=== PATIENT | female | born 1980 | race African-American/Black ===

== ENCOUNTER 2018-10-03 14:12 | Emergency (ER) | payer OTHER ==
[~2018-10-03] VITALS: Ht 154.9 cm; Wt 102.1 kg
--- NOTE | 2018-10-03 15:11 | PHYS DOC ---
Past Medical History Past Medical History: No Pertinent History Past Surgical History: , Tubal ligation Alcohol Use: Occasionally Drug Use: None Adult General Chief Complaint Chief Complaint: CHEST PAIN HPI HPI Patient is a 38 year old female presented ER today for evaluation of chest pain off and on for 2 weeks, trouble breathing for about 5 days. Patient denies any history of blood clot disorder, no history of coronary artery disease, no history hypertension. Patient had no history of diabetic. She is not a smoker, denies taking any control medication. Patient did travel to [place] about 3 weeks ago to attend her dad . She HAS no history of asthma. She says she had been under a lot of stress lately. Review of Systems Review of Systems Constitutional: Denies fever or chills [] Eyes: Denies change in visual acuity, redness, or eye pain [] HENT: Denies nasal congestion or sore throat [] Respiratory: Denies cough, POSITIVE FOR shortness of breath [] Cardiovascular: No additional information not addressed in HPI [] GI: Denies abdominal pain, nausea, vomiting, bloody stools or diarrhea [] : Denies dysuria or hematuria [] Musculoskeletal: Denies back pain or joint pain [] Integument: Denies rash or skin lesions [] Neurologic: Denies headache, focal weakness or sensory changes [] Endocrine: Denies polyuria or polydipsia [] All other systems were reviewed and found to be within normal limits, except as documented in this note. Current Medications Current Medications Current Medications Medications (Trade) Dose Ordered Sig/Neema Start Time Stop Time Status Last Admin Dose Admin Azithromycin (Zithromax) 500 mg 1X ONCE 10/03/18 17:15 10/03/18 17:16 DC 10/03/18 17:21 500 MG Ceftriaxone Sodium (Rocephin) 1 gm 1X ONCE 10/03/18 17:15 10/03/18 17:16 DC 10/03/18 17:21 1 GM Info (CONTRAST GIVEN -- Rx MONITORING) 1 each PRN DAILY PRN 10/03/18 16:15 10/05/18 16:14 Iohexol (Omnipaque 350 Mg/ml) 100 ml 1X ONCE 10/03/18 16:00 10/03/18 16:01 DC 10/03/18 16:20 100 ML Allergies Allergies Allergies Coded Allergies Type Severity Reaction Last Updated Verified No Known Drug Allergies 10/03/18 No Physical Exam Physical Exam Constitutional: Well developed, well nourished, no acute distress, non-toxic appearance. [] HENT: Normocephalic, atraumatic, bilateral external ears normal, oropharynx moist, no oral exudates, nose normal. [] Eyes: PERRLA, EOMI, conjunctiva normal, no discharge. [] Neck: Normal range of motion, no tenderness, supple, no stridor. [] Cardiovascular:Heart rate regular rhythm, no murmur [] Lungs & Thorax: Bilateral breath sounds clear to auscultation [] Abdomen: Bowel sounds normal, soft, no tenderness, no masses, no pulsatile masses. [] Skin: Warm, dry, no erythema, no rash. [] Back: No tenderness, no CVA tenderness. [] Extremities: No tenderness, no cyanosis, no clubbing, ROM intact, no edema. [] Neurologic: Alert and oriented X 3, normal motor function, normal sensory function, no focal deficits noted. [] Psychologic: Affect normal, judgement normal, mood normal. [] Current Patient Data Vital Signs Vital Signs Date Time Temp Pulse Resp B/P (MAP) Pulse Ox O2 Delivery O2 Flow Rate FiO2 10/03/18 15:00 78 18 147/86 (106) 98 Room Air 10/03/18 14:15 98.0 98.0 Lab Values Laboratory Tests Test 10/03/18 14:25 10/03/18 16:50 10/03/18 16:53 White Blood Count 6.8 x10^3/uL (4.0-11.0) Red Blood Count 4.26 x10^6/uL (3.50-5.40) Hemoglobin 13.6 g/dL (12.0-15.5) Hematocrit 40.7 % (36.0-47.0) Mean Corpuscular Volume 96 fL (79-100) Mean Corpuscular Hemoglobin 32 pg (25-35) Mean Corpuscular Hemoglobin Concent 33 g/dL (31-37) Red Cell Distribution Width 13.5 % (11.5-14.5) Platelet Count 261 x10^3/uL (140-400) Neutrophils (%) (Auto) 59 % (31-73) Lymphocytes (%) (Auto) 30 % (24-48) Monocytes (%) (Auto) 10 % (0-9) H Eosinophils (%) (Auto) 1 % (0-3) Basophils (%) (Auto) 0 % (0-3) Neutrophils # (Auto) 4.0 x10^3uL (1.8-7.7) Lymphocytes # (Auto) 2.0 x10^3/uL (1.0-4.8) Monocytes # (Auto) 0.7 x10^3/uL (0.0-1.1) Eosinophils # (Auto) 0.1 x10^3/uL (0.0-0.7) Basophils # (Auto) 0.0 x10^3/uL (0.0-0.2) Prothrombin Time 14.2 SEC (11.7-14.0) H Prothrombin Time INR 1.1 (0.8-1.1) D-Dimer (Aileen) < 0.27 ug/mlFEU Sodium Level 140 mmol/L (136-145) Potassium Level 3.7 mmol/L (3.5-5.1) Chloride Level 103 mmol/L (98-107) Carbon Dioxide Level 24 mmol/L (21-32) Anion Gap 13 (6-14) Blood Urea Nitrogen 11 mg/dL (7-20) Creatinine 0.9 mg/dL (0.6-1.0) Estimated GFR (Cockcroft-Gault) 70.8 BUN/Creatinine Ratio 12 (6-20) Glucose Level 94 mg/dL (70-99) Calcium Level 8.7 mg/dL (8.5-10.1) Magnesium Level 2.0 mg/dL (1.8-2.4) Total Bilirubin 0.3 mg/dL (0.2-1.0) Aspartate Amino Transferase (AST) 17 U/L (15-37) Alanine Aminotransferase (ALT) 22 U/L (14-59) Alkaline Phosphatase 73 U/L (46-116) Creatine Kinase 119 U/L (26-192) Creatine Kinase MB (Mass) 1.3 ng/mL (0.0-3.6) Creatine Kinase MB Relative Index 1.1 % (0-4) Troponin I Quantitative < 0.017 ng/mL (0.000-0.055) NF-[id number]-Type Natriuretic Peptide 9 pg/mL (0-124) Total Protein 7.4 g/dL (6.4-8.2) Albumin 3.4 g/dL (3.4-5.0) Albumin/Globulin Ratio 0.9 (1.0-1.7) L Lipase 94 U/L (73-393) Urine Collection Type Unknown Urine Color Yellow Urine Clarity Clear Urine pH 6.5 Urine Specific [place] >=1.030 Urine Protein Negative mg/dL (NEG-TRACE) Urine Glucose (UA) Negative mg/dL (NEG) Urine Ketones (Stick) Negative mg/dL (NEG) Urine Blood Negative (NEG) Urine Nitrite Negative (NEG) Urine Bilirubin Negative (NEG) Urine Urobilinogen Dipstick 1.0 mg/dL (0.2 mg/dL) Urine Leukocyte Esterase Trace (NEG) Urine RBC 6-10 /HPF (0-2) Urine WBC 5-10 /HPF (0-4) Urine Squamous Epithelial Cells Mod /LPF Urine Bacteria 0 /HPF (0-FEW) Urine Trichomonas Present POC Urine HCG, Qualitative Hcg negative (Negative) Laboratory Tests 10/03/18 14:25 Laboratory Tests 10/03/18 14:25 EKG EKG EKG WAS READ BY THIS PHYSICIAN, HEART RATE OF 91 BPM, SINUS RHYTHM, NO STEMI. Radiology/Procedures Radiology/Procedures [][facility] [address] [place] [address] IMAGING REPORT Signed PATIENT: CHRISTIAN BECK ACCOUNT: [id number] : 1980 LOCATION: ER AGE: 38 SEX: F EXAM STATUS: PRE ER ORD. PHYSICIAN: VIDAL BOTELLO DO REASON: CHEST PAIN PROCEDURE: CHEST AP ONLY Single view of the chest. 10/03/2018 2:50 PM Indication: MID STERNAL CHEST PAIN X 2 WEEKS, SOA X 2 DAYS Comparison: None Findings: There is no focal consolidation. There is no pleural effusion or pneumothorax. The cardiomediastinal silhouette and pulmonary vasculature are within normal limits. No acute osseous abnormalities are seen. Impression: No evidence of acute cardiopulmonary process. Electronically signed by: Claude Irizarry MD (10/03/2018 3:07 PM) [facility] DICTATED and SIGNED BY: CLAUDE IRIZARRY MD DATE: 10/03/18 1507 [facility] [address] [place] [address] IMAGING REPORT Signed PATIENT: CHRISTIAN BECK ACCOUNT: [id number] : 1980 LOCATION: ER AGE: 38 SEX: F EXAM STATUS: REG ER ORD. PHYSICIAN: VIDAL BOTELLO DO REASON: CHEST PAIN, SOA, RECENT LONG DISTANCE TRAVEL PROCEDURE: CT ANGIOGRAPHY CHEST PQRS Compliance statement: One or more of the following individualized dose reduction techniques were utilized for this examination: 1. Automated exposure control. 2. Adjustment of the mA and/or kV according to patient size. 3. Use of iterative reconstruction technique. Indication:CP SOA RECENT TRAVEL INJ 75ML OMNI 350 NO PREV TECHNIQUE: CT angiogram of the chest with IV contrast with multiplanar MIP reformats. COMPARISON:None FINDINGS: Suboptimal PE study due to contrast bolus timing. There are no central or proximal segmental filling defects in the pulmonary arteries. Evaluation of distal segmental and subsegmental pulmonary arteries is limited. Heart is normal in size. No pericardial or pleural effusion. No enlarged axillary, mediastinal or hilar adenopathy. Visualized sections through the liver, spleen, pancreas, adrenals and kidneys are normal limits. Central airways are patent. Multifocal patchy ground glass opacities are seen in the left upper lobe. No suspicious bony lesion. IMPRESSION: 1. Suboptimal PE study due to contrast bolus timing. No central or proximal segmental PE. Evaluation of distal segmental and subsegmental pulmonary arteries is limited. 2. No pneumonia or imaging evidence of acute pulmonary infarct. 3. Multifocal patchy groundglass opacities in the left upper lobe likely infectious in nature. Electronically signed by: Gurvinder Bear DO (10/03/2018 4:40 PM) [facility] DICTATED and SIGNED BY: GURVINDER BEAR DO DATE: 10/03/18 1640 Course & Med Decision Making Course & Med Decision Making Pertinent Labs and Imaging studies reviewed. (See chart for details) [] Dragon Disclaimer Dragon Disclaimer This electronic medical record was generated, in whole or in part, using a voice recognition dictation system. Departure Departure Impression: Primary Impression: Chest pain Additional Impression: CAP (community acquired pneumonia) Disposition: HOME, SELF-CARE Condition: STABLE Referrals: NON,STAFF (PCP) FOLLOW UP WITH YOUR DOCTOR ON MONDAY FOR REEVALUATION Patient Instructions: Chest Pain (Nonspecific), Pneumonia, Adult Scripts Azithromycin (ZITHROMAX) 250 Mg Tablet 1 PKG PO UD, #6 TAB Prov: VIDAL BOTELLO DO 10/03/18 Problem Qualifiers VIDAL BOTELLO DO Oct 03, 2018 15:11
[2018-10-03 15:16] LABS: BASO % 0 % (0-3); EOS # 0.1 x10^3/uL (0.0-0.7); EOS % 1 % (0-3); HEMATOCRIT 40.7 % (36.0-47.0); HEMOGLOBIN 13.6 g/dL (12.0-15.5); LYMPH % 30 % (24-48); MEAN CORPUSCULAR HEMOGLOBIN 32 pg (25-35); MEAN CORPUSCULAR HGB CONC 33 g/dL (31-37); MEAN CORPUSCULAR VOLUME 96 fL (79-100); MONO # 0.7 x10^3/uL (0.0-1.1); MONO % 10 % (0-9); NEUT % 59 % (31-73); PLATELET COUNT 261 x10^3/uL (140-400); RED BLOOD COUNT 4.26 x10^6/uL (3.50-5.40); RED CELL DISTRIBUTION WIDTH 13.5 % (11.5-14.5); WHITE BLOOD COUNT 6.8 x10^3/uL (4.0-11.0)
[2018-10-03 15:28] LABS: CALCIUM 8.7 mg/dL (8.5-10.1); CREATININE 0.9 mg/dL (0.6-1.0); GFR 70.8; POTASSIUM 3.7 mmol/L (3.5-5.1)
[2018-10-03 15:34] LABS: ALBUMIN 3.4 g/dL (3.4-5.0); ALBUMIN/GLOBULIN RATIO 0.9 (1.0-1.7); TOTAL BILIRUBIN 0.3 mg/dL (0.2-1.0); TOTAL PROTEIN 7.4 g/dL (6.4-8.2)
[2018-10-03 15:59] LABS: PROTHROMBIN TIME PATIENT 14.2 SEC (11.7-14.0)
[2018-10-03] MEDS ORDERED: IOHEXOL 350 MG/ML 100 ML VIAL. IV ONE (16:00)
[2018-10-03 16:07] LABS: D-DIMER < 0.27 ug/mlFEU (0.00-0.50)
[2018-10-03] MEDS ORDERED: CONTRAST GIVEN. MC PRN (16:15)
--- NOTE | 2018-10-03 16:43 | RAD ---
PQRS Compliance statement: One or more of the following individualized dose reduction techniques were utilized for this examination: 1. Automated exposure control. 2. Adjustment of the mA and/or kV according to patient size. 3. Use of iterative reconstruction technique. Indication:CP SOA RECENT TRAVEL INJ 75ML OMNI 350 NO PREV TECHNIQUE: CT angiogram of the chest with IV contrast with multiplanar MIP reformats. COMPARISON:None FINDINGS: Suboptimal PE study due to contrast bolus timing. There are no central or proximal segmental filling defects in the pulmonary arteries. Evaluation of distal segmental and subsegmental pulmonary arteries is limited. Heart is normal in size. No pericardial or pleural effusion. No enlarged axillary, mediastinal or hilar adenopathy. Visualized sections through the liver, spleen, pancreas, adrenals and kidneys are normal limits. Central airways are patent. Multifocal patchy ground glass opacities are seen in the left upper lobe. No suspicious bony lesion. IMPRESSION: 1. Suboptimal PE study due to contrast bolus timing. No central or proximal segmental PE. Evaluation of distal segmental and subsegmental pulmonary arteries is limited. 2. No pneumonia or imaging evidence of acute pulmonary infarct. 3. Multifocal patchy groundglass opacities in the left upper lobe likely infectious in nature. Electronically signed by: Gurvinder Bear DO (10/03/2018 4:40 PM) [facility]
[2018-10-03 16:58] LABS: BILIRUBIN,URINE NEGATIVE (NEG); CLARITY,URINE CLEAR; COLOR,URINE YELLOW; NITRITE,URINE NEGATIVE (NEG); PH,URINE 6.5; PROTEIN,URINE NEGATIVE (NEG-TRACE)
[2018-10-03 17:00] VITALS: BP 141/84
[2018-10-03 17:12] LABS: SQUAMOUS EPITHELIAL CELL,UR MOD /LPF
[2018-10-03 17:13] LABS: BACTERIA,URINE 0 /HPF (0-FEW); TRICHOMONAS,URINE PRESENT
[2018-10-03] MEDS ORDERED: AZITHROMYCIN 250 MG TABLET. PO ONE (17:15)
[2018-10-03] MEDS ORDERED: cefTRIAXone IV Push 1 GM VIAL. IVP ONE (17:15)
[2018-10-03] MEDS ORDERED: AZIT250T PO (17:28)
--- NOTE | 2018-10-04 08:33 | EKG ---
[facility] [address] [place] [address] Test Date: 2018-10-03 Test Time: 14:22:36 Pat Name: CHRISTIAN BECK Department: Room: Gender: F Human Resource Officer: : 1980 Requested By: VIDAL BOTELLO Order Number: [id number] Reading MD: Samuel Richey MD Measurements Intervals [place] Rate: 91 P: 50 NV: 144 QRS: 18 QRSD: 84 T: 21 QT: 362 QTc: 447 Interpretive Statements SINUS RHYTHM Electronically Signed On 10-05-2018 16:32:40 CDT by Samuel Richey MD
== END 2018-10-03 17:40 | disposition home or self-care (01) ==
LOC: ER 14:12
DX: J18.9 Pneumonia, unspecified organism (principal); R07.89 Other chest pain; Z98.51 Tubal ligation status; Z98.890 Other specified postprocedural states
CPT/HCPCS: 36415; 71045; 71275; 80053; 81001; 81025; 82553; 83690; 83735; 83880; 84484; 85025; 85379; 85610; 87086; 93005; 96374; 99284; J0696; Q0144; Q9967